=== PATIENT | female | born 1995 | race Caucasian/White ===

== ENCOUNTER → 2019-09-28 15:20 | Outpatient (CLI) | payer BC, SELFPAY ==
--- NOTE | ~2019-09-28 | US_ITS ---
EXAMINATION: US pelvic complete w TV DATE: 09/28/2019 16:06 INDICATION: Missing IUD strings TECHNIQUE: Multiple transabdominal and endovaginal sonographic images of the pelvis were obtained. COMPARISON: None. FINDINGS: The uterus measures 7.6 x 4.2 x 5.1 cm. The endometrial complex measures 14 mm. An IUD is p resent in the endometrial canal in expected position. The right ovary measures 4.4 x 3.0 x 3.4 cm. Th e left ovary measures 2.7 x 1.5 x 3.1 cm. There is normal vascular flow in the ovaries. There is no f ree fluid in the pelvis. IMPRESSION: 1. IUD in expected position. Reviewed, dictated and finalized at location A.
== END ==
PROVIDERS: PCP Family Medicine; Visit Provider Nurse Practitioner
DX: Z30.431 Encounter for routine checking of intrauterine contraceptive device (principal)
CPT/HCPCS: 76830; 76856